=== PATIENT | female | born 1990 | race Caucasian/White ===

== ENCOUNTER 2020-05-30 14:40 | Emergency (ER) | payer BC ==
[~2020-05-30] VITALS: Ht 160 cm; Wt 77.3 kg
[2020-05-30 14:59] VITALS: BP 125/85
[2020-05-30] MEDS ORDERED: ketorolac tromethamine 15mg/ml inj. IM ONE (16:05)
== END 2020-05-30 17:36 | disposition home or self-care (01) ==
LOC: ER 14:41
DX: S60.022A Contusion of left index finger without damage to nail, initial encounter (principal); W23.0XXA Caught, crushed, jammed, or pinched between moving objects, initial encounter; Y93.89 Activity, other specified; Y92.89 Other specified places as the place of occurrence of the external cause; Y99.8 Other external cause status
CPT/HCPCS: 29130; 73140; 96372; 99283; J1885

== ENCOUNTER 2022-07-08 09:18 | Outpatient (CLI) | payer BC ==
[2022-07-08] VITALS (18 sets, daily range): BP systolic 93–127; BP diastolic 51–75
== END 2022-07-08 23:59 | disposition home or self-care (01) ==
LOC: CARD DIAG 09:18
PROVIDERS: ATTEND Internal Medicine Interventional Cardiology
DX: R55 Syncope and collapse (principal)
CPT/HCPCS: 93660